=== PATIENT | male | born 1985 | race Caucasian/White ===

== ENCOUNTER → 2017-02-14 | Outpatient (CLI) | payer OTHER ==
[~2017-02-14] MED LIST: CONRAY-43 43% 50ML VIAL (Q9960) As Ordered ONE
--- NOTE | 2017-02-14 09:03 | REP ---
MR arthrography right shoulder: with pre and post intra-articular gadolinium enhanced saline injected imaging: History: Right shoulder pain for the last month following a work out. No comparison imaging. Technique: The injection procedure is performed and dictated separately. Pre and post intra-articular gadolinium enhanced saline injected imaging is acquired. Imaging planes include axial, oblique coronal, oblique sagittal and ABER projection images. T1 T2-weighted scans are included with and without fat saturation. MRI findings: Preinjection MR imaging shows normal alignment of the glenohumeral and acromioclavicular joints. There is marrow edema on either side of the AC joint with a tiny amount of fluid in the AC joint. This may reflect early arthropathy or conceivably contusion. No juxtaarticular cyst or mass is seen. Preinjection imaging does show some mild tendonitis tendinosis change in the distal supraspinatus tendon without a focal T2 defect. There is a tiny sliver of preinjection subacromial subdeltoid bursal fluid. Postinjection imaging shows good filling and enhancement of the right glenohumeral articulation. There is a nondisplaced tear through the posterior cartilaginous labrum. The superior labrum appears intact. There is no evidence of loose body. No rotator cuff tear is appreciated. No definite anterior labral tear is seen. The infraspinatus and biceps tendons are intact. Subscapularis tendon appears somewhat thickened consistent with tendonitis tendinosis change. The exam is otherwise unremarkable. Impression: 1. Early arthropathy with marrow edema at the AC joint. 2. Posterior cartilaginous glenoid labral tear. 3. Tendonitis tendinosis change in the distal supraspinatus and subscapularis tendons. Signed by Inocencio Ann MD 02/14/2017 09:06 A
--- NOTE | 2017-02-14 16:05 | REP ---
Procedure: right shoulder arthrogram The procedure was performed under the direct supervision of Dr. Ann. History: Right shoulder pain The benefits and risks including but not limited to pain, infection, bleeding and anaphylaxis were explained to the patient and informed consent was obtained. Technique: The right glenohumeral joint space was localized using fluoroscopic guidance. The skin was prepped and draped in a sterile fashion. 1% lidocaine was used as a local anesthetic. Using fluoroscopic guidance a 22 gauge spinal needle was inserted and advanced into the joint. 0.5 ml of Conray 43 was injected to verify placement. 11 ml of a solution containing 20 ml of sterile saline and 0.15 ml of ProHance was injected into the joint. The needle was removed and the patient was taken to MRI for postprocedural imaging. The the patient tolerated the procedure well and there were no immediate complications. 1 second of fluoro time was utilized for this procedure. Reviewed by LULY Hardy 02/14/2017 03:40 PSigned by Inocencio Ann MD 02/14/2017 03:56 P
== END | disposition home or self-care (01) ==
LOC: M RADPRO 06:42
PROVIDERS: ATTEND Physician Assistant
DX: M19.011 Primary osteoarthritis, right shoulder (principal); M25.411 Effusion, right shoulder; M75.80 Other shoulder lesions, unspecified shoulder
CPT/HCPCS: 23350; 73223; 77002; A9576; Q9960